=== PATIENT | female | born 2000 | race Caucasian/White ===

== ENCOUNTER 2021-03-22 16:07 | Emergency (ER) | payer OTHER ==
[~2021-03-22] VITALS: Ht 165.1 cm; Wt 63.5 kg
[~2021-03-22 16:07] MED LIST: FALMINA1 EACH PO; KEFLEX500 MG PO; OMEPRAZOLE20 MG PO
[2021-03-22] MEDS ORDERED: SUCRALFATE1 GM (16:19)
[2021-03-22] MEDS ORDERED: OMEPRAZOLE20 MG (16:19)
[2021-03-22] MEDS ORDERED: PREDNISONE20 MG PO (16:54)
== END 2021-03-22 17:10 | disposition home or self-care (01) ==
LOC: ED 16:07
DX: J02.9 Acute pharyngitis, unspecified (principal); Z79.899 Other long term (current) drug therapy
CPT/HCPCS: 87081; 87880; 99283; J7512